=== PATIENT | male | born 2000 | race Hispanic/Latino ===

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

== ENCOUNTER 2023-02-27 00:38 | Emergency (ER) | payer MEDICAID ==
[~2023-02-27] VITALS: Ht 157.5 cm; Wt 59.5 kg
[2023-02-27 00:39] VITALS: BP 128/77; PULSE 85; RESP 20; O2SAT 98
[2023-02-27] MEDS ORDERED: POLY10DR22 OP (01:27)
[2023-02-27] MEDS ORDERED: IBUP-1493 PO (01:27)
[2023-02-27] MEDS ORDERED: TETRACAINE HCL 0.5% 4 ML OPHTH SOLN OP SCH (01:30)
[2023-02-27] MEDS ORDERED: FLUORESCEIN SODIUM 1 STRIP STRIP OP SCH (01:30)
== END 2023-02-27 02:09 | disposition home or self-care (01) ==
LOC: EDH 00:38
DX: H10.9 Unspecified conjunctivitis (principal); J45.909 Unspecified asthma, uncomplicated